=== PATIENT | male | born 1980 | race Caucasian/White ===

== ENCOUNTER 2017-12-06 21:21 | Emergency (ER) | payer OTHER ==
[~2017-12-06] VITALS: Ht 177.8 cm; Wt 81.6 kg
[~2017-12-06 21:21] MED LIST: IBUP-2213
[2017-12-06 21:28] VITALS: BP 122/77
--- NOTE | 2017-12-06 21:30 | NUR ---
TO LOBBY, A/W JERRY WELLS, NEAL ERMD NOTED
--- NOTE | 2017-12-06 22:25 | NUR ---
PT TAKEN TO BED 7
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
--- NOTE | 2017-12-06 23:02 | NUR ---
PT MOVED TO CHAIR E
[2017-12-06 23:19] VITALS: BP 119/82
--- NOTE | 2017-12-06 23:19 | NUR ---
Patient discharged with v/s stable. Written and verbal after care instructions given and explained. Patient verbalized understanding. Ambulatory with steady gait. All questions addressed prior to discharge. Advised to follow up with PMD.
== END 2017-12-06 23:19 | disposition home or self-care (01) ==
LOC: MED 21:21
DX: S01.01XD Laceration without foreign body of scalp, subsequent encounter (principal); Z79.899 Other long term (current) drug therapy; X58.XXXD Exposure to other specified factors, subsequent encounter
CPT/HCPCS: 99283

== ENCOUNTER 2018-05-26 17:55 | Emergency (ER) | payer OTHER ==
[~2018-05-26] VITALS: Ht 177.8 cm; Wt 79.8 kg
[2018-05-26 17:57] VITALS: BP 135/76
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
--- NOTE | 2018-05-26 17:57 | NUR ---
PT AMBULATES TO BED 3
--- NOTE | 2018-05-26 18:15 | NUR ---
Patient being evaluated by physician at bedside.
[2018-05-26] MEDS ORDERED: IBUPROFEN 800 MG TAB PO ONE (18:25)
[2018-05-26] MEDS ORDERED: CLINDAMYCIN 600 MG/4 ML VIAL IM ONE (18:25)
[2018-05-26 18:45] VITALS: BP 132/82
--- NOTE | 2018-05-26 18:45 | NUR ---
Patient discharged with v/s stable. Written and verbal after care instructions given and explained. Patient alert, oriented and verbalized understanding of instructions. Ambulatory with steady gait. All questions addressed prior to discharge. ID band removed. Patient advised to follow up with PMD. Rx of BACTRIM 800MG-160MG, AUGMENTIN 500MG AND MOTRIN 800MG given. Patient educated on indication of medication including possible reaction and side effects. Opportunity to ask questions provided and answered.
== END 2018-05-26 18:45 | disposition home or self-care (01) ==
LOC: MED 17:55
DX: K12.2 Cellulitis and abscess of mouth (principal); Z79.1 Long term (current) use of non-steroidal anti-inflammatories (NSAID)
CPT/HCPCS: 96372; 99283; J3490

== ENCOUNTER 2018-09-11 21:19 | Emergency (ER) | payer OTHER ==
[~2018-09-11] VITALS: Ht 175.3 cm; Wt 81.6 kg
[2018-09-11 21:19] VITALS: BP 142/89
--- NOTE | 2018-09-11 21:19 | NUR ---
BIB EMS AND [employer]. ETOH AND DISORDERLY CONDUCT IN PUBLIC. WRESTLED WITH [facility]. PRE-BOOK FOR ELEVATED HR. NO C/O PAIN. CMS INTACT X4 EXTREMITIES. ER MD AWARE. CONTINUE TO MONITOR.
--- NOTE | 2018-09-11 21:19 | NUR ---
PT AMBULATED FROM GURNEY TO CHAIR E. PLACED ON RESTRAINTS D/T LACK OF COOPERATION. ACCOMPANIED BY [facility].
[2018-09-11 21:30] VITALS: BP 141/86
--- NOTE | 2018-09-11 21:30 | NUR ---
PATIENT [facility] [facility]. PATIENT EXAMINED BY DR. MONROE. PATIENT MEDICALLY CLEARED AND RELEASED IN CUSTODY IN STABLE CONDITION. ORIGINAL PRE-BOOK FORM GIVEN TO OFFICER JAQUELINE.
== END 2018-09-11 21:30 ==
LOC: MED 21:19
DX: F10.10 Alcohol abuse, uncomplicated (principal); Z02.89 Encounter for other administrative examinations; Z79.1 Long term (current) use of non-steroidal anti-inflammatories (NSAID); Y90.9 Presence of alcohol in blood, level not specified
CPT/HCPCS: 99283

== ENCOUNTER 2019-12-21 13:46 | Emergency (ER) | payer OTHER ==
[~2019-12-21] VITALS: Ht 175.3 cm; Wt 77.1 kg
--- NOTE | 2019-12-21 13:48 | NUR ---
PT AMBULATED TO BED 4. TRIAGED AT BEDSIDE.
[2019-12-21 13:52] VITALS: BP 120/71
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
--- NOTE | 2019-12-21 14:00 | NUR ---
DANAE ÁLVAREZ AT BEDSIDE.
[2019-12-21] MEDS ORDERED: cefTRIAXone 1,000 MG in LIDOCAINE MPF 1% 2.1 ML IM ONE (14:05)
[2019-12-21] MEDS ORDERED: LIDOCAINE MPF 1% 5 ML ONE (14:07)
[2019-12-21] MEDS ORDERED: cefTRIAXone 1,000 MG VIAL ONE (14:07)
[2019-12-21 14:36] VITALS: BP 118/68
--- NOTE | 2019-12-21 14:36 | NUR ---
Patient discharged with v/s stable. Written and verbal after care instructions given and explained. Patient alert, oriented and verbalized understanding of instructions. Ambulatory with steady gait. All questions addressed prior to discharge. ID band removed. Patient advised to follow up with PMD. Rx of Keflex and Ibuprofen given. Patient educated on indication of medication including possible reaction and side effects. Opportunity to ask questions provided and answered.
== END 2019-12-21 14:36 | disposition home or self-care (01) ==
LOC: MED 13:46
DX: S61.401A Unspecified open wound of right hand, initial encounter (principal); B96.81 Helicobacter pylori [H. pylori] as the cause of diseases classified elsewhere; Z48.00 Encounter for change or removal of nonsurgical wound dressing; Z79.899 Other long term (current) drug therapy; W26.0XXA Contact with knife, initial encounter; Y93.89 Activity, other specified; Y92.89 Other specified places as the place of occurrence of the external cause; Y99.9 Unspecified external cause status
CPT/HCPCS: 96372; 99283; J0696; J2001